=== PATIENT | male | born 1985 | race Caucasian/White ===

== ENCOUNTER 2016-07-30 17:49 | Emergency (ER) | payer SELFPAY ==
[~2016-07-30 17:49] MED LIST: CEPH-264 PO; IBUP200T58 PO
[2016-07-30] MEDS ORDERED: IV NORMAL SALINE 1,000ML 1,000 ML ONE (18:24)
[2016-07-30] MEDS: IV NORMAL SALINE 1,000ML 1,000 ML IV ONE (18:45)
[2016-07-30 19:13] LABS: INFLUENZA A PATIENT NEGATIVE (NEGATIVE); INFLUENZA B PATIENT POSITIVE (NEGATIVE)
[2016-07-30] MEDS: PENICILLIN G BENZATHINE LA 1,200,000 UNIT/2 ML DISP.SYRIN. IM ONE (20:04)
[2016-07-30 20:06] VITALS: BP 121/65
--- NOTE | 2016-07-30 20:52 | ED.ADGEN ---
Past History Past Medical History: Diabetes Past Surgical History: Tonsillectomy Alcohol Use: Rarely Drug Use: None Adult General HPI HPI Patient is a 30-year-old male presents emergency department complaining of fever and sore throat for the last 48 hours. He denies any nausea, vomiting. He has been tolerating fluids okay but limited on solid foods due to the pain. Denies any cough. Review of Systems Review of Systems Constitutional: Denies fever or chills [] Eyes: Denies change in visual acuity, redness, or eye pain [] HENT: Denies nasal congestion or sore throat [] Respiratory: Denies cough or shortness of breath [] Cardiovascular: No additional information not addressed in HPI [] GI: Denies abdominal pain, nausea, vomiting, bloody stools or diarrhea [] : Denies dysuria or hematuria [] Musculoskeletal: Denies back pain or joint pain [] Integument: Denies rash or skin lesions [] Neurologic: Denies headache, focal weakness or sensory changes [] Endocrine: Denies polyuria or polydipsia [] Current Medications Current Medications Current Medications Medications (Trade) Dose Ordered Sig/Kianna Start Time Stop Time Status Last Admin Dose Admin Penicillin G Benzathine (Bicillin L-A) 1,200,000 unit 1X ONCE 07/30/16 20:10 07/30/16 20:11 DC 07/30/16 20:04 1,200,000 UNIT Sodium Chloride (Iv Sodium Chloride 0.9% 1,000ml) 1,000 ml @ 1,000 mls/hr 1X ONCE 07/30/16 18:45 07/30/16 19:44 DC 07/30/16 18:45 1,000 MLS/HR Allergies Allergies Allergies Coded Allergies Type Severity Reaction Last Updated Verified levofloxacin Allergy Intermediate Rash 02/14/14 Yes Physical Exam Physical Exam Constitutional: Well developed, well nourished, no acute distress, non-toxic appearance. [] HENT: Normocephalic, atraumatic, bilateral external ears normal, oropharynx moist, no oral exudates, nose normal. [] Eyes: PERRLA, EOMI, conjunctiva normal, no discharge. [] Neck: Normal range of motion, no tenderness, supple, no stridor. [] Cardiovascular:Heart rate regular rhythm, no murmur [] Lungs & Thorax: Bilateral breath sounds clear to auscultation [] Abdomen: Bowel sounds normal, soft, no tenderness, no masses, no pulsatile masses. [] Skin: Warm, dry, no erythema, no rash. [] Back: No tenderness, no CVA tenderness. [] Extremities: No tenderness, no cyanosis, no clubbing, ROM intact, no edema. [] Neurologic: Alert and oriented X 3, normal motor function, normal sensory function, no focal deficits noted. [] Psychologic: Affect normal, judgement normal, mood normal. [] Current Patient Data Vital Signs Vital Signs Date Time Temp Pulse Resp B/P Pulse Ox O2 Delivery O2 Flow Rate FiO2 07/30/16 20:06 101 20 121/65 98 Room Air 07/30/16 17:49 99.6 Lab Results Laboratory Tests Test 07/30/16 18:53 Influenza Type A (Rapid) Negative (NEGATIVE) Influenza Type B (Rapid) Positive (NEGATIVE) EKG EKG [] Radiology/Procedures Radiology/Procedures [] Course & Med Decision Making Course & Med Decision Making Pertinent Labs and Imaging studies reviewed. (See chart for details) Positive for both influenza and strep. Patient received a shot of Bicillin here in emergency department. He declined the Tamiflu. He was given supportive care and follow-up instructions. [] Final Impression Final Impression Influenza, strep pharyngitis [] Problems: Dragon Disclaimer Dragon Disclaimer This electronic medical record was generated, in whole or in part, using a voice recognition dictation system. JIMMIE VELOZ MD Jul 30, 2016 20:52
== END 2016-07-30 20:09 | disposition home or self-care (01) ==
LOC: ER 17:49
DX: J09.X2 Influenza due to identified novel influenza A virus with other respiratory manifestations (principal); J02.0 Streptococcal pharyngitis; E11.9 Type 2 diabetes mellitus without complications; Z88.1 Allergy status to other antibiotic agents
CPT/HCPCS: 87804; 87880; 96360; 96372; 99284; J0561; J7030

== ENCOUNTER → 2018-06-27 | Outpatient (CLI) | payer OTHER ==
--- NOTE | 2018-06-27 12:36 | RAD ---
3 views of the lumbar spine without comparison for disability determination, back pain. FINDINGS: There is straightening of the normal lumbar lordosis. There is no fracture, dislocation, or acute osseous abnormality. There is a subtle levocurvature of the lumbar spine. Intervertebral disc spaces are well maintained at all levels. IMPRESSION: 1. Straightening of the normal lumbar lordosis with a subtle levocurvature. No acute osseous or alignment abnormality. Electronically signed by: Lonnie Sterling MD (06/27/2018 12:34 PM) [id number]
== END | disposition home or self-care (01) ==
LOC: RAD 09:48
PROVIDERS: ATTEND Surgery
DX: M40.46 Postural lordosis, lumbar region (principal); M43.8X6 Other specified deforming dorsopathies, lumbar region
CPT/HCPCS: 72100

== ENCOUNTER 2019-08-07 12:00 | Emergency (ER) | payer SELFPAY ==
[~2019-08-07] VITALS: Ht 177.8 cm; Wt 63.6 kg
[2019-08-07 13:14] LABS: MONONUCLEOSIS PATIENT NEGATIVE (NEGATIVE)
--- NOTE | 2019-08-07 13:37 | PHYS DOC ---
Past History Past Medical History: Diabetes Past Surgical History: Tonsillectomy Alcohol Use: Rarely Drug Use: None Adult General Chief Complaint Chief Complaint: SORE THROAT HPI HPI 33-year-old male presents with sore throat. He has had a sore throat for about a week. He has gone through a amoxicillin prescription as well as azithromycin prescription. Today is his last dose. He still has a lot of pain with swallowing. He denies fever chills. He thinks that the swelling is slightly better. He has no other complaints. Review of Systems Review of Systems Constitutional: Denies fever or chills [] Eyes: Denies change in visual acuity, redness, or eye pain [] HENT: sore throat [] Respiratory: Denies cough or shortness of breath [] Cardiovascular: No additional information not addressed in HPI [] GI: Denies abdominal pain, nausea, vomiting, bloody stools or diarrhea [] : Denies dysuria or hematuria [] Musculoskeletal: Denies back pain or joint pain [] Integument: Denies rash or skin lesions [] Neurologic: Denies headache, focal weakness or sensory changes [] Endocrine: Denies polyuria or polydipsia [] All other systems were reviewed and found to be within normal limits, except as documented in this note. Allergies Allergies Allergies Coded Allergies Type Severity Reaction Last Updated Verified levofloxacin Allergy Intermediate Rash 02/14/14 Yes Physical Exam Physical Exam Constitutional: Well developed, well nourished, no acute distress, non-toxic appearance. [] HENT: Normocephalic, atraumatic, bilateral external ears normal tonsils erythematous without exudate, nose normal. [] Eyes: PERRLA, EOMI, conjunctiva normal, no discharge. [] Neck: Normal range of motion, no tenderness, supple, no stridor. [] Cardiovascular: Heart rate regular rhythm, no murmur [] Lungs & Thorax: Bilateral breath sounds clear to auscultation [] Abdomen: Bowel sounds normal, soft, no tenderness, no masses, no pulsatile masses. [] Skin: Warm, dry, no erythema, no rash. [] Back: No tenderness, no CVA tenderness. [] Extremities: No tenderness, no cyanosis, no clubbing, ROM intact, no edema. [] Neurologic: Alert and oriented X 3, normal motor function, normal sensory function, no focal deficits noted. [] Psychologic: Affect normal, judgement normal, mood normal. [] Current Patient Data Vital Signs Vital Signs Date Time Temp Pulse Resp B/P (MAP) Pulse Ox O2 Delivery O2 Flow Rate FiO2 08/07/19 12:05 98.4 104 18 146/81 (102) 100 Room Air Lab Results Laboratory Tests Test 08/07/19 12:15 08/07/19 12:43 Group A Streptococcus Rapid Negative (NEGATIVE) Heterophil Agglutinins Negative (NEGATIVE) EKG EKG [] Radiology/Procedures Radiology/Procedures [] Course & Med Decision Making Course & Med Decision Making Pertinent Labs and Imaging studies reviewed. (See chart for details) The patient's rapid strep and his mononucleosis are negative. This appears to be another viral pharyngitis. I will give him 125 with Solu-Medrol IM. Otherwise supportive care at home. He is stable for discharge at this time. [] Dragon Disclaimer Dragon Disclaimer This electronic medical record was generated, in whole or in part, using a voice recognition dictation system. Departure Departure: Impression: Primary Impression: Viral pharyngitis Disposition: HOME, SELF-CARE Condition: STABLE Referrals: IDALMIS LIND DO (PCP) Patient Instructions: Viral Pharyngitis VICKIE GABRIEL DO Aug 07, 2019 13:37
[2019-08-07] MEDS ORDERED: methylPREDNISolone SOD SUCC PF 125 MG/2 ML VIAL. IM ONE (13:45)
[2019-08-07 14:01] VITALS: BP 124/70
== END 2019-08-07 14:02 | disposition home or self-care (01) ==
LOC: ER 12:00
DX: J02.8 Acute pharyngitis due to other specified organisms (principal); B97.89 Other viral agents as the cause of diseases classified elsewhere; E11.9 Type 2 diabetes mellitus without complications; Z90.89 Acquired absence of other organs; Z88.1 Allergy status to other antibiotic agents
CPT/HCPCS: 86308; 87070; 87880; 96372; 99283; J2930

== ENCOUNTER 2020-02-14 19:17 | Emergency (ER) | payer MEDICAID ==
[~2020-02-14] VITALS: Ht 180.3 cm; Wt 70.0 kg
[2020-02-14 19:17] VITALS: BP 145/90
--- NOTE | 2020-02-14 19:43 | PHYS DOC ---
Past History Past Medical History: Diabetes Past Surgical History: Tonsillectomy Alcohol Use: Rarely Drug Use: None General Adult EDM: Chief Complaint: HYPOGLYCEMIA HPI: HPI: Tyrel Aguero is a 34-year-old male who presents with symptoms of hypoglycemia. He states that earlier today he began having numbness in his bilateral chest wall, face, and bilateral wrists extending proximally up the forearm. He states that this occurred shortly after he took his unknown pill and insulin medications. He did not check his blood sugar level at this time, and is noted to be at 124 in the emergency department. These symptoms preceded prior to arrival even though he drank a lot of milk in an effort to increase his blood sugar level. The patient confirms recent fever and chills, headache, vision changes, diaphoresis, chest pain, shortness of breath, abdominal pain, and difficulty accomplishing bowel and bladder movements. Patient denies nausea and vomiting as well as a history of anxiety. Patient states that he has experienced hypoglycemia with similar but less severe symptoms previously. Review of Systems: Review of Systems: Constitutional: Affirms fever and chills Eyes: Denies redness or eye pain; affirms vision change HENT: Denies nasal congestion or sore throat Respiratory: Denies cough; affirms shortness of breath Cardiovascular: Affirms chest pain or palpitations GI: Denies nausea or vomiting; affirms abdominal pain and constipation : Denies dysuria or hematuria; affirms difficulty urinating Musculoskeletal: Denies joint pain; affirms back pain Integument: Denies rash or skin lesions Neurologic: Affirms headache, focal weakness or sensory changes Complete systems were reviewed and found to be within normal limits, except as documented in this note. Heart Score: HEART Score for Chest Pain: HEART Score for Chest Pain Response (Comments) Value History Slighlty/Non-Suspicious 0 ECG Normal 0 Age < 45 0 Risk Factors 1 or 2 Risk Factors 1 Total 1 Risk Factors: Risk Factors: DM, Current or recent (<one month) smoker, HTN, HLP, family history of CAD, obesity. Risk Scores: Score 0 - 3: 2.5% MACE over next 6 weeks - Discharge Home Score 4 - 6: 20.3% MACE over next 6 weeks - Admit for Clinical Observation Score 7 - 10: 72.7% MACE over next 6 weeks - Early Invasive Strategies Allergies: Allergies: Allergies Coded Allergies Type Severity Reaction Last Updated Verified levofloxacin Allergy Intermediate Rash 02/14/14 Yes Physical Exam: PE: Constitutional: Well developed, well nourished, no acute distress, non-toxic appearance HENT: Normocephalic, atraumatic Eyes: PERRL, EOMI, conjunctiva normal, no discharge, pupils are dilated bilaterally, left upper eyelid is drooping Neck: Normal range of motion, no tenderness, supple Lungs & Thorax: No respiratory distress, equal chest rise and fall Cardiac: Slightly tachycardic, no murmurs Abdomen: Soft, no tenderness Skin: Warm, dry, no erythema, no rash Back: No tenderness, no CVA tenderness Extremities: No tenderness, ROM intact, no edema Neurologic: Alert and oriented X 3, normal motor function, no focal deficits noted, strength 5 out of 5 in all extremities, reports diminished sensation in various body parts but is inconsistent upon reexamination Psychologic: Affect normal, judgment normal EKG: EKG: @2042 NSR at 88bpm, NO ST elevation, QRS 104ms, QT/QTc 356/434ms Course & Med Decision Making: Course & Med Decision Making Patient presents with nonspecific symptoms of hypoglycemia as presented above. Cardiac etiology was ruled out given unlikely clinical presentation, patient's heart score of 1, and normal EKG findings. Patient's glucose level was 124 upon admission. Further work-up was negative for any further pathology. At this moment patient symptoms appear to be due to anxiety, likely secondary to a momentary episode of hypoglycemia prior to arrival. Patient is reassured of stable clinical status and advised to continue diabetes treatment as per primary care physician. Krupa Disclaimer: Krupa Disclaimer: This electronic medical record was generated, in whole or in part, using a voice recognition dictation system. Departure Departure: Impression: Primary Impression: Dizziness Additional Impressions: Anxiety Hypomagnesemia Disposition: HOME/RESIDENCE PRIOR TO ADM Condition: STABLE Referrals: CHRISTOPHER SUE MD (PCP) Patient Instructions: Anxiety and Panic Attacks, [id number], Dizziness, [id number], Hypomagnesemia AKUA SHEFFIELD DO Feb 14, 2020 19:43
[2020-02-14 20:18] LABS: BASO # 0.1 x10^3/uL (0.0-0.2); BASO % 1 % (0-3); EOS # 0.4 x10^3/uL (0.0-0.7); EOS % 3 % (0-3); HEMATOCRIT 47.3 % (39.0-53.0); HEMOGLOBIN 15.8 g/dL (13.0-17.5); LYMPH # 2.6 x10^3/uL (1.0-4.8); LYMPH % 24 % (24-48); MEAN CORPUSCULAR HEMOGLOBIN 30 pg (25-35); MEAN CORPUSCULAR HGB CONC 34 g/dL (31-37); MEAN CORPUSCULAR VOLUME 90 fL (79-100); MONO # 0.7 x10^3/uL (0.0-1.1); MONO % 7 % (0-9); NEUT % 65 % (31-73); PLATELET COUNT 151 x10^3/uL (140-400); RED BLOOD COUNT 5.27 x10^6/uL (4.30-5.70); RED CELL DISTRIBUTION WIDTH 13.7 % (11.5-14.5); WHITE BLOOD COUNT 10.7 x10^3/uL (4.0-11.0)
[2020-02-14 20:44] LABS: CALCIUM 9.9 mg/dL (8.5-10.1); CREATININE 1.6 mg/dL (0.7-1.3); GFR 49.7; POTASSIUM 3.5 mmol/L (3.5-5.1)
[2020-02-14] MEDS: IV NORMAL SALINE 1,000ML 1,000 ML IV ONE (20:51)
[2020-02-14 20:53] LABS: ALBUMIN 4.2 g/dL (3.4-5.0); ALBUMIN/GLOBULIN RATIO 1.1 (1.0-1.7); MAGNESIUM 1.5 mg/dL (1.8-2.4); TOTAL BILIRUBIN 0.4 mg/dL (0.2-1.0)
--- NOTE | 2020-02-14 21:00 | EKG ---
[address] [address] Test Date: 2020-02-14 Test Time: 20:42:56 Pat Name: LUIS MIGUEL LONGORIA Department: Room: Gender: M Skatesman: : 1985 Requested By: AKUA SHEFFIELD Order Number: [id number] Reading MD: Measurements Intervals [place] Rate: 88 P: -8 ME: 166 QRS: 31 QRSD: 104 T: 50 QT: 356 QTc: 434 Interpretive Statements SINUS RHYTHM OTHERWISE NORMAL ECG RI6.02 No previous ECG available for comparison
[2020-02-14 21:17] LABS: BARBITURATES NEG (NEG); BENZODIAZEPINES NEG (NEG); CANNABINOIDS NEG (NEG); COCAINE NEG (NEG); METHADONE NEG (NEG); OPIATES NEG (NEG); PHENCYCLIDINE NEG (NEG)
[2020-02-14 21:23] LABS: AMPHETAMINE/METHAMPHETAMINE NEG (NEG)
[2020-02-14 21:28] LABS: CLARITY,URINE CLEAR; COLOR,URINE STRAW
[2020-02-14 21:29] LABS: BACTERIA,URINE 0 /HPF (0-FEW); BILIRUBIN,URINE NEG (NEG); GLUCOSE,URINE 500 mg/dL (NEG); NITRITE,URINE NEG (NEG); RBC,URINE 0 /HPF (0-2); UROBILINOGEN,URINE 0.2 mg/dL (0.2 mg/dL); WBC,URINE 0 /HPF (0-4)
[2020-02-14] MEDS: MAGNESIUM CHLORIDE ER 64 MG TABLET.ER PO ONE (22:00)
== END 2020-02-14 22:02 | disposition home or self-care (01) ==
LOC: ER 19:17
DX: R42 Dizziness and giddiness (principal); E83.42 Hypomagnesemia; F41.9 Anxiety disorder, unspecified; E11.649 Type 2 diabetes mellitus with hypoglycemia without coma; Z88.1 Allergy status to other antibiotic agents
CPT/HCPCS: 36415; 80053; 80307; 81001; 82553; 83735; 84484; 85025; 93005; 96360; 99284; G0480; J7030